=== PATIENT | female | born 1985 | race Hispanic/Latino ===

== ENCOUNTER 2019-09-27 09:52 | Day surgery (SDC) | payer OTHER ==
[2019-09-27 10:49] VITALS: BMI 29.0
[2019-09-27] MEDS ORDERED: FLU VACC QS2019-20(6MOS UP)/PF 60 MCG/0.5 ML SYRINGE IM ONE (11:00)
--- NOTE | 2019-09-27 11:58 | ULT ---
EXAM: US Biophysical Profile Umbilical artery Doppler evaluation PROVIDED CLINICAL HISTORY: Intrauterine gestation. Assess status. COMPARISON: None FINDINGS: There is a single intrauterine gestation in cephalic presentation. Cardiac Doppler demonstrates heart tones with a heart rate of 119 bpm. There is a normal amount of amniotic fluid with an amniotic fluid index of 10.9 cm. The placenta is located posteriorly without evidence of placenta pre via. A score of 2 was obtained for tone, breathing, movements, and amniotic fluid volume . Umbilical artery Doppler evaluation with spectral analysis and color flow: At level of placenta: peak systolic velocity-81.5 cm/s, end-diastolic velocity-25.1 cm/s, pulsatility index-1.21, resistive index-0.69, and systolic to diastolic ratio of 3.25. Mid umbilical artery: peak systolic velocity-67.7 cm/s, end-diastolic velocity-26.9 cm/s, pulsatility index-0.94, resistive index that 0.6, and systolic to diastolic ratio 2.52. Umbilical artery insertion at level of the fetus: peak systolic velocity-68.3 cm/s, end-diastolic cassius ocity-37.6 cm/s, pulsatility index of 0.82, resistive index 0.5, and the systolic to diastolic ratio of 1.82. IMPRESSION: 1. Single intrauterine gestation in cephalic presentation with heart tones documented. 2. Total biophysical profile score of 8 out of 8. 3. Amniotic fluid index measures 10.9 cm. 3. Umbilical artery Doppler evaluation is as described above.
[2019-09-27] MEDS ORDERED: hydrALAZINE 20 MG/ML VIAL SLOW IVP PRN (11:59)
--- NOTE | 2019-09-27 12:54 | HP ---
The time of evaluation was roughly 12 o'clock noon to 12:15. LOCATION: Triage B. This is a patient of Dr. Fernandez. The patient is here for a scheduled (by Dr. Fernandez) NST and biophysical profile. Umbilical artery Dopplers were also ordered by Dr. Fernandez. HISTORY OF PRESENT ILLNESS: In brief, this is a 34-year-old , G4, P3, living two (her last delivery had a 34-week IUFD with a nuchal cord) with an EDC of November 08, 2019 making her 34 weeks and 0 days today. She is here because of a history of chronic hypertension, on oral nifedipine 60 mg daily and her prior intrauterine demise, which is suspected to have been a cord accident, but this is unclear. She states good movement. No leakage of fluid. No vaginal bleeding and no contractions. REVIEW OF SYSTEMS: Complete review of systems was checked and is otherwise negative unless specified in the HPI. PAST MEDICAL HISTORY: History of chronic hypertension and she is on oral nifedipine 60 mg p.o. daily. ALLERGIES: NONE. PAST SURGICAL HISTORY: None. OB HISTORY: She has had 3 vaginal deliveries and her last delivery was a demise with what is suspected to be a cord accident due to a nuchal cord. PHYSICAL EXAMINATION: VITAL SIGNS: The patient's vital signs are 138/92 for blood pressure, pulse is 76, O2 saturation is 97%, respirations are 18 and unlabored; and her temperature is 97.6. GENERAL: Clinically, she is in no acute distress and is resting comfortably. ABDOMEN: Soft and nontender. Vaginal exam was deferred at this time as there is no evidence of labor. Grossly, there is no evidence of vaginal bleeding or leakage of fluid. MONITORS: On nonstress test assessment, the monitors were reviewed and there was moderate variability and accelerations with a rate of around 120 to 130. There are no pathological findings and these are reactive. BPP: A biophysical profile shows a score of 8/8 with a fluid check of 10.9 cm MARA. The baby is in the cephalic presentation with a posterior placenta. The heart rate by ultrasound is 119 beats per minute. On the umbilical artery Dopplers, there is an SD ratio of 3.2, which is just under the 95th percentile. According to the online calculator, the 95th percentile for the SD ratio was 3.58. Also, the resistance index (RI) at the placenta is 0.69. This is between the 50th and 95th percentile, so it is normal. This is according to the online calculator at [email or web address]. ASSESSMENT: This is a 34-year-old , G4, P3, at 34 weeks and 0 days with a history of a prior intrauterine demise suspected cord accident, currently at 34 weeks and 0 days with chronic hypertension on oral nifedipine once a day. PLAN: 1. Reassurance given based on the findings above. 2. I reviewed with her that the Doppler studies are normal, although they are much more of clinical value in the growth-restricted infant and I do not have that history from her. 3. I discussed and reviewed the possible nuchal cord accident with her last delivery and how this is a non-preventable issue. The risk of recurrence is very small. 4. I instructed her to keep her followup appointment. 5. There is no evidence of need for intervention at this time. Job ID: [id number] [id number]
== END 2019-09-27 12:41 | disposition home health service (06) ==
LOC: L&D/OP 09:52
PROVIDERS: ATTEND Family Medicine
DX: O10.913 Unspecified pre-existing hypertension complicating pregnancy, third trimester (principal); O09.293 Supervision of pregnancy with other poor reproductive or obstetric history, third trimester; Z3A.34 34 weeks gestation of pregnancy; Z79.899 Other long term (current) drug therapy
CPT/HCPCS: 59025; 76819; 93976; 99282

== ENCOUNTER 2019-10-18 18:00 | Inpatient (IN) | payer MEDICAID, OTHER, SELFPAY ==
[2019-10-18] MEDS ORDERED: Butorphanol Tartrate 1 MG/ML VIAL SLOW IVP PRN (23:40)
[2019-10-18] MEDS ORDERED: Lidocaine 1% (PF) 30 ML VIAL SC PRN (23:40)
[2019-10-18] MEDS ORDERED: NS w/ Oxytocin 10 units 500 ML IV SCH ×2 (23:40)
[2019-10-18] MEDS ORDERED: Diphenoxylate HCl/Atropine Tablet PO PRN (23:40)
[2019-10-18] MEDS ORDERED: hydrALAZINE 20 MG/ML VIAL SLOW IVP PRN (23:40)
[2019-10-18] MEDS ORDERED: NS / Oxytocin 40 units/1000ml 1,000 ML IV PRN (23:40)
[2019-10-18] MEDS ORDERED: Misoprostol 200 MCG TAB PR PRN (23:40)
[2019-10-18] MEDS ORDERED: Ibuprofen 800 MG TAB PO PRN (23:40)
[2019-10-18] MEDS ORDERED: Ondansetron PF 4 MG/2 ML Vial IVP PRN (23:40)
[2019-10-18] MEDS ORDERED: HYDROcodone/Acetaminophen 5/325 mg Tablet PO PRN (23:40)
[2019-10-18] MEDS ORDERED: Carboprost 250 MCG/ML AMP IM PRN (23:40)
[2019-10-18] MEDS ORDERED: Promethazine HCl 25 MG/ML VIAL IM PRN (23:40)
[2019-10-19 00:25] VITALS: BMI 32.1
[2019-10-19 00:25] LABS: Hemoglobin 12.9 g/dL (12.0-16.0); Mean Corpuscular Hemoglobin 28.4 pg (27.0-31.0); Mean Corpuscular Volume 81.1 fL (78.0-98.0); Mean Platelet Volume 8.5 fL (7.4-10.4); Platelet Count 254 thou/uL (130-400); RBC Distribution Width 15.5 % (11.5-14.5); Red Blood Cell (RBC) Count 4.56 mill/uL (4.20-5.40); White Blood Cell (WBC) Count 11.3 thou/uL (4.8-10.8)
[2019-10-19] MEDS: Misoprostol 100 MCG TAB VAG SCH ×2 (00:56→04:08)
[2019-10-19 01:11] LABS: HBSAg Index 0.23 S/CO (0-0.99); Hep B Surf Ag Non-Reactive S/CO (NonReactive)
[2019-10-19 04:05] LABS: Syphilis Antibody Nonreactive (Nonreactive); Syphilis Antibody Index 0.06 S/CO (<1.00 Non-Reactive)
[2019-10-19] MEDS: Lactated Ringer's 1,000 ML IV SCH ×2 (04:09→11:31)
[2019-10-19] MEDS ORDERED: Fentanyl 4 mcg/Bup 0.1% Cadd 100 ML ONE (10:25)
[2019-10-19] MEDS ORDERED: Naloxone HCl 0.4 mg/ml Vial IVP PRN ×2 (11:36)
[2019-10-19] MEDS ORDERED: ePHEDrine/0.9% NaCl/PF SYRINGE 50 mg/10 ml SLOW IVP PRN (11:36)
[2019-10-19] MEDS ORDERED: Ondansetron PF 4 MG/2 ML Vial IVP PRN ×2 (11:36→18:02)
[2019-10-19] MEDS ORDERED: Lactated Ringer's 500 ML IV PRN (11:36)
[2019-10-19] MEDS ORDERED: Acetaminophen 325 MG TAB PO PRN (11:36)
[2019-10-19] MEDS ORDERED: Promethazine HCl 25 MG/ML VIAL IM PRN ×2 (11:36→18:02)
[2019-10-19] MEDS ORDERED: diphenhydrAMINE 50 MG/ML VIAL IVP PRN (11:36)
[2019-10-19] MEDS ORDERED: Fentanyl 4 mcg/Bupivacaine 0.1% Cassette 100 ML EPIDURAL SCH (11:45)
[2019-10-19] MEDS ORDERED: Communication Order-Pharmacy FS PRN (11:45)
[2019-10-19] MEDS ORDERED: Bisacodyl 10 MG SUPP PR PRN (18:02)
[2019-10-19] MEDS ORDERED: diphenhydrAMINE 25 MG CAP PO PRN (18:02)
[2019-10-19] MEDS ORDERED: HYDROcodone/Acetaminophen 5/325 mg Tablet PO PRN (18:02)
[2019-10-19] MEDS ORDERED: Lanolin Ointment 7 GM TUBE TOP PRN (18:02)
[2019-10-19] MEDS ORDERED: Milk Of Magnesia 30 ML UDCUP PO PRN (18:02)
[2019-10-19] MEDS ORDERED: hydrALAZINE 20 MG/ML VIAL SLOW IVP PRN (18:02)
[2019-10-19] MEDS ORDERED: NS / Oxytocin 40 units/1000ml 1,000 ML IV SCH (18:02)
[2019-10-19] MEDS: Ibuprofen 800 MG TAB PO SCH (21:45)
[2019-10-19] MEDS: Docusate Calcium (SURFAK) 240 MG CAP PO SCH (21:46)
[2019-10-19] MEDS: HYDROcodone/Acetaminophen 5/325 mg Tablet PO PRN (21:46)
[2019-10-20] MEDS: Ibuprofen 800 MG TAB PO SCH ×3 (06:03→21:47)
[2019-10-20 06:29] LABS: Hemoglobin 11.1 g/dL (12.0-16.0); Mean Corpuscular HGB CONC 34.4 g/dL (32.0-36.0); Mean Corpuscular Hemoglobin 28.2 pg (27.0-31.0); Mean Corpuscular Volume 82.1 fL (78.0-98.0); Mean Platelet Volume 8.3 fL (7.4-10.4); Platelet Count 182 thou/uL (130-400); RBC Distribution Width 15.4 % (11.5-14.5); Red Blood Cell (RBC) Count 3.92 mill/uL (4.20-5.40); White Blood Cell (WBC) Count 11.3 thou/uL (4.8-10.8)
[2019-10-20] MEDS ORDERED: Adacel (T-DAP) 0.5 ML SYRINGE IM ONE (09:00)
[2019-10-20] MEDS: Docusate Calcium (SURFAK) 240 MG CAP PO SCH ×2 (09:29→21:47)
[2019-10-20] MEDS: Prenatal Vitamin 1 TAB PO SCH (09:29)
[2019-10-20] MEDS: Misoprostol 100 MCG TAB VAG SCH (09:30)
[2019-10-20] MEDS: Ferrous Sulfate 325 MG TAB PO SCH ×2 (09:30→18:33)
[2019-10-20] MEDS: Lactated Ringer's 1,000 ML IV SCH (14:39)
[2019-10-20] MEDS: HYDROcodone/Acetaminophen 5/325 mg Tablet PO PRN (16:29)
[2019-10-21] MEDS: Ibuprofen 800 MG TAB PO SCH (06:35)
[2019-10-21 08:33] VITALS: BP 148/88; TEMP 98.2
[2019-10-21] MEDS: Docusate Calcium (SURFAK) 240 MG CAP PO SCH (09:22)
[2019-10-21] MEDS: Ferrous Sulfate 325 MG TAB PO SCH (09:22)
[2019-10-21] MEDS: Prenatal Vitamin 1 TAB PO SCH (09:22)
== END 2019-10-21 10:35 | disposition home or self-care (01) | DRG 807 ==
LOC: L&D 21:42 → 3SW 10-19 21:26
PROVIDERS: ADMIT Family Medicine; ATTEND Family Medicine
PROC: 10907ZC Drainage of Amniotic Fluid, Therapeutic from Products of Conception, Via Natural or Artificial Opening (ICD-10-PCS; 2019-10-18)
PROC: 3E0P7VZ Introduction of Hormone into Female Reproductive, Via Natural or Artificial Opening (ICD-10-PCS; 2019-10-18)
PROC: 10E0XZZ Delivery of Products of Conception, External Approach (ICD-10-PCS; principal; 2019-10-19)
DX: O10.02 Pre-existing essential hypertension complicating childbirth (principal); Z37.0 Single live birth; Z3A.37 37 weeks gestation of pregnancy; Z79.899 Other long term (current) drug therapy; Z79.82 Long term (current) use of aspirin
CPT/HCPCS: 36415; 51702; 85027; 86780; 86850; 86900; 86901; 87340; J2590